=== PATIENT | female | born 1990 | race Hispanic/Latino ===

== ENCOUNTER 2018-08-09 03:01 | Inpatient (IN) | payer MEDICAID ==
[2018-08-09] MEDS ORDERED: LACTATED RINGERS 1,000 ML IV ONE (03:45)
[2018-08-09 03:59] LABS: Basophils # (Auto) 0.1 K/mm3 (0.0-0.1); Basophils % (Auto) 0.5 % (0.0-1.8); Eosinophils # (Auto) 0.1 K/mm3 (0.0-0.4); Eosinophils % (Auto) 0.4 % (0.0-4.3); Hemoglobin 10.8 gm/dl (10.1-14.3); Lymphocytes # (Auto) 2.5 K/mm3 (1.2-5.4); Lymphocytes % (Auto) 17.7 % (13.4-35.0); Mean Corpuscular HGB Conc 35 % (30-34); Mean Corpuscular Volume 87 fl (79-97); Monocytes # (Auto) 0.6 K/mm3 (0.0-0.8); Monocytes % (Auto) 4.4 % (0.0-7.3); Platelet Count 516 K/mm3 (140-440); Red Blood Count 3.55 M/mm3 (3.65-5.03); Red Cell Distribution Width 14.4 % (13.2-15.2)
[2018-08-09] MEDS ORDERED: PEPCID IV ONE ×2 (04:07→04:08)
[2018-08-09] MEDS ORDERED: BICITRA ONE (04:07)
[2018-08-09] MEDS ORDERED: REGLAN ONE (04:08)
[2018-08-09] MEDS ORDERED: PITOCin/NS 20 UNIT/1000ML DRIP 40,000 MILLIUNITS/2,000 ML BAG IV ONE (04:08)
[2018-08-09] MEDS ORDERED: BICITRA PO ONE (04:08)
[2018-08-09] MEDS ORDERED: ANCEF/STERILE WATER 2 GM/20 ML 2 GM/20 ML SYRINGE IV ONE (04:08)
[2018-08-09] MEDS ORDERED: REGLAN IV ONE (04:08)
[2018-08-09] MEDS ORDERED: ANCEF/STERILE WATER 2 GM/20 ML 2 GM/20 ML SYRINGE IV NR (04:15)
[2018-08-09] MEDS ORDERED: SUBLIMAZE IV ONE (04:26)
[2018-08-09] MEDS ORDERED: SUBLIMAZE ONE ×2 (04:30→04:57)
[2018-08-09] MEDS ORDERED: PHENERGAN PO PRN (04:34)
[2018-08-09] MEDS ORDERED: NARCAN 0.4 MG/1 ML IV PRN ×2 (04:34→06:37)
[2018-08-09] MEDS ORDERED: ZOFRAN IV PRN ×2 (04:34→06:37)
[2018-08-09] MEDS ORDERED: PHENERGAN PR PRN (04:34)
[2018-08-09] MEDS: LACTATED RINGERS 1,000 ML IV SCH ×3 (04:35→18:21)
--- NOTE | 2018-08-09 04:40 | Ultrasound Report ---
FINAL REPORT EXAM: US OB LIMITED HISTORY: presentation COMPARISONS: None. FINDINGS: Limited grayscale and M-mode transabdominal 3rd trimester ultrasound A single living intrauterine is present with recorded cardiac activity of 161 beats per min [place] in breech presentation. The cervix is not well visualized. No assessment of amniotic fluid volume . IMPRESSION: Single living intrauterine in breech presentation.
--- NOTE | 2018-08-09 04:54 | History and Physical Report ---
History of Present Illness Date of examination: 08/09/18 Date of admission: 08/09/18 04:31 Chief complaint: I'm in labor History of present illness: Patient is a 28 year old who presents at 38.2 weeks with EDC 08/21/18 in labor. Patient was 4-5cm but no presenting part was noted. Ultrasound revealed breech presentation. Will now prepare for . She has had an uncomplicated . She is a patient of [facility]. Past History Past Surgical History: appendectomy Social history: - Obstetrical History Expected Date of Delivery: 08/21/18 Actual Gestation: 38 Week(s) 3 Day(s) : 3 Para: 2 Number of Living Children: 2 Medications and Allergies Allergies Allergy/AdvReac Type Severity Reaction Status Date / Time No Known Allergies Allergy Verified 08/09/18 03:25 Home Medications Medication Instructions Recorded Confirmed Last Taken Type Vit,Calc76/Iron/Folic 1 each PO DAILY 08/09/18 08/09/18 08/08/18 History [Pnv 29-1 Tablet] Active Meds: Active Medications Lactated Ringer's (Lactated Ringers) 1,000 mls @ 2,250 mls/hr IV PREOP GIOVANNI Stop: 08/10/18 05:27 Last Admin: 08/09/18 04:35 Dose: 2,250 mls/hr Documented by: Oxytocin/Sodium Chloride (Pitocin/Ns 20 Unit/1000ml Drip) 20 units in 1,000 mls @ 0 mls/hr IV TITR GIOVANNI Naloxone HCl (Narcan 0.4 Mg/1 Ml) 0.2 mg IV Q2MIN PRN PRN Reason: Res Rate </= 8 or 02 SAT < 92% Ondansetron HCl (Zofran) 4 mg IV Q8H PRN PRN Reason: Nausea And Vomiting Promethazine HCl (Phenergan) 25 mg PO Q6H PRN PRN Reason: Nausea And Vomiting Promethazine HCl (Phenergan) 25 mg VT Q6H PRN PRN Reason: Nausea And Vomiting Sodium Chloride (Sodium Chloride Flush Syringe 10 Ml) 10 ml IV PRN PRN PRN Reason: LINE FLUSH - Vital Signs Vital signs: Vital Signs Temp Pulse Resp BP 98.1 F 100 H 20 134/93 08/09/18 03:17 08/09/18 03:17 08/09/18 03:17 08/09/18 03:17 Temp Pulse Resp BP Pulse Ox 98.1 F 77 20 114/72 08/09/18 03:17 08/09/18 03:46 08/09/18 03:17 08/09/18 03:46 - Physical Exam Breasts: Positive: deferred Cardiovascular: Regular rate, Normal S1, Normal S2 Abdomen: Positive: normal appearance, soft, normal bowel sounds Genitourinary (Female): Positive: normal external genitalia, normal perenium Vulva: both: normal Vagina: Positive: normal moisture Uterus: Positive: normal size, normal contour Extremities: Positive: normal - Obstetrical Cervical Dilatation: 5 Results Result Diagrams: 08/09/18 19:04 Abnormal lab results 08/09/18 Range/Units 03:45 WBC 14.0 H (4.5-11.0) K/mm3 RBC 3.55 L (3.65-5.03) M/mm3 MCHC 35 H (30-34) % Plt Count 516 H (140-440) K/mm3 Seg Neutrophils % 77.0 H (40.0-70.0) % Seg Neutrophils # 10.8 H (1.8-7.7) K/mm3 All other labs normal. Assessment and Plan IUP at 38.2 weeks in active labor with new finding of double footling breech. Plan for urgent .
[2018-08-09] MEDS ORDERED: SENSORCAINE/DEXTR 0.75-8.25% INFILTRATI ONE (04:56)
[2018-08-09] MEDS ORDERED: ASTRAMORPH PF 10MG/10ML ONE (04:57)
[2018-08-09] MEDS ORDERED: PITOCin/NS 20 UNIT/1000ML DRIP 20 UNITS/1,000 ML BAG IV SCH ×2 (05:00→07:00)
[2018-08-09] MEDS ORDERED: SODIUM CHLORIDE FLUSH SYRINGE 10 ML IV PRN ×2 (05:00→07:00)
[2018-08-09] MEDS ORDERED: VERSED ONE (05:51)
[2018-08-09] MEDS ORDERED: LANSINOH TP PRN (06:37)
[2018-08-09] MEDS ORDERED: MORPHINE IV PRN (06:37)
[2018-08-09] MEDS ORDERED: TUCKS PAD TP PRN (06:37)
[2018-08-09] MEDS ORDERED: MYLICON PO PRN (06:37)
[2018-08-09] MEDS ORDERED: TORADOL IV PRN (06:37)
--- NOTE | 2018-08-09 06:43 | Procedure Note ---
OB Delivery Note - Delivery Date of Delivery: 08/09/18 Surgeon: OLAF RAMIREZ Estimated blood loss: 500cc - Section Preop diagnosis: desires sterilization, breech Postop diagnosis: same section procedure: primary low transverse Disposition: PACU Complications: none, ureteral injury, other - A at 1 minute: 8 at 5 minutes: 9 Infant Gender: Female (5 pounds 4 ounces 2378g)
--- NOTE | 2018-08-09 06:48 | Operative Report ---
Operative Report Operative Report: The operative report for patient Jeremy Gutierrez Date of service 08/09/2018 Preoperative diagnosis: Intrauterine at 38 and 2 weeks 2. Double footling breech presentation 3. Undesired fertility Postoperative diagnosis: Same Procedure: Primary low transverse section Surgeon: Dr. Miguelina Daniel EBL: 500 mL Urine output: 100 mL IV fluids: 1500 mL Findings: Viable female in the double footling breech presentation, mentum posterior position. Weight 5 lbs. 4 oz. 2378 g Apgars 8 and 9]. Otherwise normal pelvic anatomy Specimens: Portion of right and left fallopian tube Complications: None Procedure: The patient was admitted to the OR with IV running and in place. She was properly identified as herself. Spinal was placed in the OR without difficulty.. She was placed in the dorsal supine position with a leftward tilt. A Armstrong catheter was inserted. She was then prepped and draped in the normal sterile fashion. An Allis test was used to confirm adequate anesthesia. Once confirmed, the incision was made with the scalpel and carried to the underlying fascia using the scalpel and the Bovie. The fascia was incised in the midline and incision was extended bilaterally using the curved Maddox scissors. The fascia was then dissected from the underlying rectus muscles in a series of sharp and blunt dissection using the Maddox scissors. Muscles were in the in the midline sharply using Metzenbaum scissors and the raz toneum was entered into bluntly using the surgeon's fingers. A bladder blade was then placed into the incision to protect the bladder. Following this the bladder flap was created. Hysterotomy incision was then made in the scalpel. Upon uterine entry, the amniotic sac was ruptured for clear fluid. The was then delivered feet first and double footling breech position. Her mouth and nose were suctioned on the field. The cord was clamped and cut and she was handed to the waiting NICU personnel. The placenta was delivered manually and taken off the field. The uterus was then exteriorized and cleared of all clots and debris. The hysterotomy incision was then closed in a running locked fashion using 0 Vicryl. Attention was then turned to the fallopian tubes, each tube was grasped in the midportion with a [place] clamp. Each tube was ligated in the [place] fashion. The abdomen was then copiously irrigated with warm normal saline. Following this the uterus was replaced into the abdominal cavity. At this point the muscles were reapproximated in the midline using individual sutures of 0 Vicryl. Following this the fascia was closed in a running fashion using 0 Vicryl. Ti ssue was then copiously irrigated. A retention suture was placed in the subcuticular fat. Skin was closed in a running fashion using 3-0 Monocryl. The sponge lap needle and instrument counts were correct 2. The patient tolerated the procedure well. There was excellent hemostasis. She was taken to recovery in stable condition.
[2018-08-09] MEDS ORDERED: D5LR 1,000 ML IV SCH (07:00)
[2018-08-09] MEDS ORDERED: PRENATAL VITAMIN PO SCH (10:00)
[2018-08-09] MEDS: IBUPROFEN PO PRN (18:21)
[2018-08-09 19:31] LABS: Hematocrit 24.9 % (30.3-42.9); Hemoglobin 8.3 gm/dl (10.1-14.3)
[2018-08-10] MEDS: IBUPROFEN PO PRN ×2 (06:40→18:00)
[2018-08-10] MEDS: PERCOCET 5/325 PO PRN ×3 (07:37→18:00)
--- NOTE | 2018-08-10 18:36 | Progress Note ---
Assessment and Plan POD 2 s/p primary ltcs for breech. Doing well. Plan for discharge on tomorrow. Subjective - Subjective Date of service: 08/10/18 Interval history: Patient is a 28 year old who presents at 38.2 weeks with EDC 08/21/18 in labor. Patient was 4-5cm but no presenting part was noted. Ultrasound revealed breech presentation. Will now prepare for . She has had an uncomplicated . She is a patient of [facility]. Patient reports: appetite normal, voiding normally, pain well controlled, ambulating normally [place]: doing well Objective - Vital Signs Latest vital signs: Vital Signs Temp Pulse Resp BP BP Pulse Ox 08/10/18 17:09 97.5 F L 100 H 18 118/81 98 08/10/18 08:04 98.3 F 18 103/54 08/10/18 06:40 18 08/09/18 23:30 98.6 F 66 16 111/78 08/09/18 19:30 98.7 F 80 18 102/60 Intake and Output 08/10/18 08/10/18 08/10/18 06:59 14:59 22:59 Intake Total 360 Balance 360 Intake: Oral 360 Other: Total, Intake Amount 360 # Voids Indwelling Catheter 1 1 - Exam Breasts: Present: deferred Cardiovascular: Present: Regular rate, Normal S1, Normal S2 Lungs: Present: Clear to auscultation, Normal air movement Abdomen: Present: normal appearance, soft, normal bowel sounds Vulva: both: normal Uterus: Present: normal, firm, fundal height below umbilicus Extremities: Present: normal Deep Tendon Reflex Grade: Normal +2 Incision: Present: normal, dry, intact - Labs Labs: Abnormal lab results 08/09/18 Range/Units 19:04 Hgb 8.3 L (10.1-14.3) gm/dl Hct 24.9 L D (30.3-42.9) %
--- NOTE | 2018-08-10 18:41 | Discharge Summary ---
Providers - Providers Date of Admission: 08/09/18 04:31 Date of discharge: 08/11/18 Attending physician: OLAF RAMIREZ Primary care physician: OLAF RAMIREZ Hospitalization Reason for admission: active labor Delivery: Procedure: primary low transverse Episiotomy: none Incision: normal, dry, intact Other procedures: tubal ligation complications: none Discharge diagnosis: IUP at term delivered baby: female Hospital course: unremarkable Condition at discharge: Good Disposition: DC-01 TO HOME OR SELFCARE Plan - Discharge Medications Prescriptions: Docusate Sodium [Colace] 100 mg PO BID PRN #60 capsule PRN Reason: Constipation Ibuprofen [Motrin 800 MG tab] 800 mg PO Q6H PRN #40 tablet PRN Reason: Pain, Mild (1-3) oxyCODONE /ACETAMINOPHEN [Percocet 5/325 mg] 2 tab PO Q4H PRN #60 tablet PRN Reason: Pain, Moderate (4-6) - Provider Discharge Summary Activity: routine, no sex for 6 weeks, no heavy lifting 4 weeks, no strenuous exercise Diet: routine Instructions: routine Additional instructions: [] Smoking cessation referral if applicable(refer to patient education folder for contact #) [] Refer to [facility]'s [facility] [address] Booklet Call your doctor immediately for: * Fever > 100.5 * Heavy vaginal bleeding ( >1 pad per hour) * Severe persistent headache * Shortness of breath * Reddened, hot, painful area to leg or breast * Drainage or odor from incision. * Keep incision clean and dry at all times and follow doctor's instructions regarding bathing/showering - Follow up plan Follow up: OLAF RAMIREZ MD [Primary Care Provider] - 7 Days
[2018-08-11] MEDS: PERCOCET 5/325 PO PRN ×2 (04:14→09:50)
[2018-08-11] MEDS: IBUPROFEN PO PRN (04:15)
[2018-08-11] MEDS ORDERED: BOOSTRIX IM ONE (06:00)
[2018-08-11 08:51] VITALS: BP 107/65
== END 2018-08-11 13:00 | disposition home or self-care (01) | DRG 765 ==
LOC: TRG 03:01 → APU 04:31 → OB 09:10
PROVIDERS: ADMIT Obstetrics & Gynecology; ATTEND Obstetrics & Gynecology
PROC: 10D00Z1 Extraction of Products of Conception, Low, Open Approach (ICD-10-PCS; principal; 2018-08-09)
DX: O32.8XX0 Maternal care for other malpresentation of fetus, not applicable or unspecified (principal); D62 Acute posthemorrhagic anemia; Z3A.38 38 weeks gestation of pregnancy; Z37.0 Single live birth; Z90.49 Acquired absence of other specified parts of digestive tract
CPT/HCPCS: 36415; 76815; 85014; 85018; 85025; 86592; 86850; 86900; 86901; 88302; 90715; G0378; J0690; J1885; J2250; J2274; J2590; J2765; J3010; J7120